=== PATIENT | female | born 1970 ===

== ENCOUNTER 2020-12-26 05:50 | Day surgery (SDC) | payer OTHER ==
[~2020-12-26 05:50] MED LIST: CALCIUM500 M2 PO; MAGNESIUM500 MG PO; ROCALTROL0.25 MCG PO; SYNTHROID112 MCG PO; TOPROL XL25 M1 PO
== END 2020-12-26 15:15 | disposition home or self-care (01) ==
LOC: CIR.AMB 05:50
PROVIDERS: ATTEND Otolaryngology Otology & Neurotology
DX: H71.01 Cholesteatoma of attic, right ear (principal); Z20.822 Contact with and (suspected) exposure to COVID-19